=== PATIENT | female | born 1980 | race Caucasian/White ===

== ENCOUNTER 2019-06-04 09:58 | Outpatient (CLI) | payer BC ==
--- NOTE | 2019-06-04 10:43 | ULT ---
US Thyroid STANDARD: 06/04/2019 12:00 AM CLINICAL INDICATION: Goiter. COMPARISON: None. FINDINGS: Right and left thyroid lobes are normal in size and echotexture. The right thyroid lobe measures 4.7 and the left thyroid lobe measures 4.0. There are scattered subcentimeter isoechoic to hyperechoic nodules in both thyroid lobes. Some of the se contain benign-appearing calcifications. The most suspicious nodule is seen in the right thyroid lobe and measures 9 mm in greatest dimension. This is isoechoic and wider than tall but the borders a re somewhat poorly defined. No cervical lymphadenopathy is noted. IMPRESSION: Multiple small thyroid nodules. TIRADS category 2 . Per recent recommendations, no follow-up or biopsy is recommended for any of the nodules given their small size and nonsuspicious features.
== END 2019-06-04 09:59 | disposition home or self-care (01) ==
LOC: SCSULT 09:58
PROVIDERS: ATTEND Family Medicine
DX: E06.3 Autoimmune thyroiditis (principal); E04.2 Nontoxic multinodular goiter
CPT/HCPCS: 76536